=== PATIENT | male | born 1970 | race Caucasian/White ===

== ENCOUNTER 2021-01-18 18:50 | Emergency (ER) | payer OTHER ==
[~2021-01-18] VITALS: Ht 167.6 cm; Wt 73.0 kg
[2021-01-18] MEDS ORDERED: FAMOTIDINE 20MG TABLET PO ONE (20:30)
[2021-01-18] MEDS ORDERED: VISCOUS LIDOCAINE 2% 15 ML UDC PO STA (20:30)
[2021-01-18] MEDS ORDERED: MAGNESIUM/ALUMINUM HYDROXIDE/SIMETHICONE 30ML UDC PO STA (20:30)
[2021-01-18 21:16] LABS: BASOPHILS % 0.7 % (0.0-2.0); EOSINOPHILS % 0.9 % (0.0-5.0); HEMATOCRIT. 45.2 % (42.0-52.0); HEMOGLOBIN. 15.5 g/dL (14.0-18.0); LYMPHOCYTES % 37.4 % (20.0-50.0); MEAN CORPUSCULAR HEMOGLOBIN 32.3 pg (28.0-32.0); MEAN CORPUSCULAR VOLUME 93.9 fL (80.0-94.0); MEAN PLATELET VOLUME 7.9 fl (7.4-10.4); MONOCYTES % 9.3 % (2.0-8.0); NEUTROPHILS % 51.7 % (40.0-76.0); PLATELET 206 x1000/uL (130-400); RED BLOOD CELL COUNT 4.81 mill/uL (4.7-6.1); RED CELL DISTRIBUTION WIDTH 12.8 % (11.6-14.6)
[2021-01-18 21:16] LABS: CLARITY URINE CLEAR (CLEAR); COLOR URINE YELLOW (YELLOW); KETONES URINE NEGATIVE (NEGATIVE); LEUKOCYTE ESTERASE URINE NEGATIVE (NEGATIVE); NITRITE URINE NEGATIVE (NEGATIVE); OCCULT BLOOD URINE TRACE (NEGATIVE); PH URINE 5.5 (4.5-8.0); PROTEIN URINE NEGATIVE (NEGATIVE); SPECIFIC GRAVITY URINE 1.019 (1.005-1.030); UROBILINOGEN URINE 0.2 E.U./dL (0.2-1.0)
[2021-01-18 21:26] LABS: PROTHROMBIN TIME 11.2 sec (9.6-11.0)
[2021-01-18 21:32] LABS: CHLORIDE 109 mEq/L (98-107)
[2021-01-18] MEDS ORDERED: FAMO40TA70 MT (22:18)
[2021-01-18] MEDS ORDERED: MAG355OR21 MT (22:18)
[2021-01-18] MEDS ORDERED: ONDA4TAB5 MT (22:18)
[2021-01-18] MEDS ORDERED: SUCRALFATE 1 G/10 ML UDC PO ONE (22:30)
[2021-01-18 23:02] VITALS: BP 140/94
== END 2021-01-18 23:05 | disposition home or self-care (01) ==
LOC: ER 20:11
DX: R10.13 Epigastric pain (principal); I10 Essential (primary) hypertension; R31.9 Hematuria, unspecified; Z90.49 Acquired absence of other specified parts of digestive tract; Z79.899 Other long term (current) drug therapy
CPT/HCPCS: 36415; 71045; 80053; 81003; 85025; 99284